=== PATIENT | female | born 1960 | race Caucasian/White ===

== ENCOUNTER 2016-04-29 08:48 | Day surgery (SDC) | payer BC ==
[2016-04-27 09:36] VITALS: BMI 25.4
[~2016-04-29 08:48] MED LIST: ACETAMINOPHEN TAB 500 MG TAB PO ONE; DEXAMETHASONE SOD PHOSPHATE 10 MG/ML 1 ML VIAL IV ONE; DEXAMETHASONE SOD PHOSPHATE 4 MG/ML 1 ML VIAL IV ONE; FAMOTIDINE 20 MG/2 ML VIAL IV ONE; HYDROmorphone 1 MG/ML 1 ML SYRINGE IVP PRN; LACTATED RINGERS 1,000 ML IV SCH; LIDOCAINE 1% 20 ML VIAL (10MG/ML) FOR IV START INTRADERMA PRN; MIDAZOLAM 2 MG/2 ML VIAL IV PRN; ONDANSETRON 4 MG/2 ML VIAL IVP ONE; Pre Op ABX Message 1 EACH MISC MISCELLANE ONE; SCOPOLAMINE 1.5MG/72HR PATCH TRANSDERM ONE
[2016-04-29] MEDS ORDERED: PROPOFOL 10 MG/ML 20 ML VIAL IV ONE (10:52)
[2016-04-29] MEDS ORDERED: GLYCOPYRROLATE 0.2 MG/ML 2 ML VIAL ONE (10:52)
[2016-04-29] MEDS ORDERED: fentaNYL (PF) 50 MCG/ML 2 ML AMP ONE (10:52)
[2016-04-29] MEDS ORDERED: MIDAZOLAM 2 MG/2 ML VIAL ONE (10:52)
[2016-04-29] MEDS ORDERED: SUCCINYLCHOLINE CHLORIDE 100 MG/5 ML SYR IV ONE (10:52)
[2016-04-29] MEDS ORDERED: LIDOCAINE 1% INJ 10MG/ML (20 ML MDV) ONE (10:52)
[2016-04-29] MEDS ORDERED: ePHEDrine 50 MG/ML 1 ML AMP ONE (10:52)
[2016-04-29] MEDS ORDERED: LIDOCAINE 1%-EPI 1:100,000 20 ML VIAL SQ ONE ×3 (11:26→11:45)
[2016-04-29 12:57] VITALS: TEMP 98.7
[2016-04-29 13:03] VITALS: RESP 16
--- NOTE | 2016-04-29 13:09 | P.OP ---
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 Surgical removal with frozen section was recommended. Operative Findings: Patient had a large 4.5 x 2.3 cm left upper lip cancer the frozen section came back showing that the cancer is been completely removed. Description of Procedure: Patient was taken to the operative room and placed in the supine position. A general inhalation anesthetic was administered and the face was sterilely prepped and draped in usual fashion. Skin cancer was marked and the lip was anesthetized with lidocaine 1% with epinephrine 1 100,000. An incision was made surrounding this cancer and sent for frozen section after surgical removal. All margins came back negative for tumor. He developed a melolab advancement flap laterally. We elevated this flap with a secondary defect measuring 9 x 4.6 cm. We rotated the flap into position. The flap was closed with a 4-0 Monocryl deeply and a 5 and 6-0 Prolene and nylon. The mucosa was closed with a 50 rapid Vicryl. Excellent closure was obtained excellent cosmesis was obtained Mastisol and Steri-Strips were applied and the patient tolerated this well. Follow-up is scheduled for the next 7-10 days for suture removal.ial
[2016-04-29 14:19] VITALS: BP 109/79; PULSE 67
== END 2016-04-29 14:30 | disposition home or self-care (01) ==
LOC: OR 08:48
PROVIDERS: ATTEND Otolaryngology
DX: C44.01 Basal cell carcinoma of skin of lip (principal); L81.4 Other melanin hyperpigmentation; L57.8 Other skin changes due to chronic exposure to nonionizing radiation; L90.5 Scar conditions and fibrosis of skin; L85.9 Epidermal thickening, unspecified; L83 Acanthosis nigricans; L57.0 Actinic keratosis; R23.4 Changes in skin texture; F17.200 Nicotine dependence, unspecified, uncomplicated; Z88.5 Allergy status to narcotic agent
CPT/HCPCS: 88305; 88331; 14301; J2250; J1100; J2405; J2001; J3010; J0330; J2704

== ENCOUNTER → 2019-12-05 | Outpatient (CLI) | payer BC ==
--- NOTE | 2019-12-06 06:55 | US ---
EXAMINATION TYPE: US venous doppler duplex LE LT DATE OF EXAM: 12/05/2019 4:40 PM COMPARISON: NONE CLINICAL HISTORY: M79.605 Pain in left leg. Edema and pain left leg SIDE PERFORMED: left TECHNIQUE: The lower extremity deep venous system is examined utilizing real time linear array sonog jeremy with graded compression, doppler sonography and color-flow sonography. VESSELS IMAGED: External Iliac Vein (EIV) Common Femoral Vein Deep Femoral Vein Greater Saphenous Vein * Femoral Vein Popliteal Vein Small Saphenous Vein * Proximal Calf Veins (* superficial vessels) Left Leg: No evidence of DVT IMPRESSION: Grayscale, color doppler, spectral doppler imaging performed of the deep veins of the lo wer extremities. There is normal flow, compressibility, vascular waveforms.
== END | disposition home or self-care (01) ==
LOC: RADUSWWP 16:23
PROVIDERS: ATTEND Internal Medicine
DX: M79.605 Pain in left leg (principal)

== ENCOUNTER → 2020-02-12 | Outpatient (CLI) | payer BC | END | disposition home or self-care (01) | LOC: LABWHC1 09:52 | PROVIDERS: ATTEND Internal Medicine | DX: Z20.828 Contact with and (suspected) exposure to other viral communicable diseases (principal) | CPT/HCPCS: U0003; C9803 ==